=== PATIENT | male | born 1980 | race Caucasian/White ===

== ENCOUNTER → 2024-08-01 10:00 | Outpatient (BNVA) | payer OTHER, SELFPAY | PROVIDERS: PCP Family Medicine; Visit Provider Family Medicine | DX: F41.9 Anxiety disorder, unspecified (principal); R63.4 Abnormal weight loss; R53.82 Chronic fatigue, unspecified; R23.3 Spontaneous ecchymoses; E55.9 Vitamin D deficiency, unspecified; R79.89 Other specified abnormal findings of blood chemistry | CPT/HCPCS: 80053; 80061; 82306; 82607; 84439; 84443; 85025; 85651; 86140 ==

== ENCOUNTER 2024-08-06 10:49 | Outpatient (CLI) | payer OTHER, SELFPAY ==
--- NOTE | 2024-08-06 10:56 | XR_ITS ---
WS: [id number] XR lumbar spine 6V w f/e [id number] REASON FOR EXAM: LUMBAGO W/SCIATICA/R HIP PAIN/SACROILIAC JOINT PAIN FINDINGS: Minimal rotatory levoscoliosis. Minimal straightening of the normal lordosis. No vertebral body abnormality. Minimal vertebral body osteophytosis L3-L5. Mild narrowing of the L5-S1 disc space. The remaining disc spaces are intact and well preserved. No spondylolysis or significant spondylolisthesis. No abnormal vertebral body movement with flexion or extension. XR/XR lumbar spine 6V w f/e [id number] IMPRESSION: Minimal degenerative spondylosis as above.
--- NOTE | 2024-08-06 10:58 | XR_ITS ---
WS: [id number] XR hip BI 2V wo/w pel [id number] REASON FOR EXAM: CHRONIC PAIN/LUMBAGO W/SCIATICA-R SIDE/R HIP PAIN FINDINGS: RIGHT HIP: No fracture or focal bone lesion. Mild narrowing of the posterior inferior joint space with moderate subchondral sclerosis and cystic change in the acetabulum. No significant abnormality in the femoral head or neck. No soft tissue abnormality. LEFT HIP: No fracture or focal bone lesion. Mild narrowing of the posterior inferior joint space with moderate subchondral sclerosis and cystic change in the acetabulum. No significant abnormality in the femoral head or neck. No soft tissue abnormality. 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
== END 2024-08-06 10:50 | disposition home or self-care (01) ==
PROVIDERS: PCP Family Medicine; Visit Provider Nurse Practitioner Family
DX: M54.41 Lumbago with sciatica, right side (principal); G89.29 Other chronic pain; M16.0 Bilateral primary osteoarthritis of hip; M53.3 Sacrococcygeal disorders, not elsewhere classified; M51.379 Other intervertebral disc degeneration, lumbosacral region without mention of lumbar back pain or lower extremity pain
CPT/HCPCS: 72114; 73521